=== PATIENT | female | born 1990 | race Caucasian/White ===

== ENCOUNTER 2020-06-18 05:55 | Day surgery (SDC) | payer MEDICAID, SELFPAY ==
--- NOTE | 2020-06-17 12:54 | PCM.HPOB.BLA ---
- Problem List (1) Sterilization Status: Acute History and Physical Date of Admission: 06/18/20 DATE OF SERVICE: June 12, 2020 ? PROBLEM:?desires permanent sterilization ? DIAGNOSIS:?desires permanent sterilization ? SUBJECTIVE:?Pt has 5 children. She is 100% certain that she does not desire more children in the future.?Currently single. Not sexually active. Last sexually active 3-4 years ago. Not on control.? ? PAST SURGICAL HISTORY:? PAST SURGICAL HISTORY PAST SURGICAL HISTORY Procedure Laterality Date ? DELIVERY ONLY ? 2009,09/06/11 ? , low transverse ? DELIVERY ONLY ? 06/23/14 ? , low transverse ? DELIVERY ONLY ? 08/26/15 ? , low transverse ? DELIVERY ONLY ? 10/2016 ? , low transverse ? PAST SURGICAL HISTORY OF ? ? ? BILATERAL FOOT SURGERY ? PAST MEDICAL HISTORY:? PAST MEDICAL HISTORY PAST MEDICAL HISTORY Diagnosis Date ? Anemia ? ? Chlamydia ? ? WITH 1ST ? Excessive or frequent menstruation ? ? Heavy periods ? Irregular menstrual cycle ? ? Irregular periods ? SOCIAL HISTORY:? SOCIAL HISTORY Social History ? Tobacco Use ? Smoking status: Never Smoker ? Smokeless tobacco: Never Used Substance Use Topics ? Alcohol use: No ? Drug use: No ? Allergies: ?Codeine ?Other: See Comments ??Comment:dizziness ? Current Outpatient Medications on File Prior to Visit Medication Sig ? loratadine (CLARITIN) 10 mg tablet ? ? fluticasone (FLONASE) 50 mcg/actuation nasal spray ? ? VITAMIN D2 1,250 mcg (50,000 unit) capsule Take 1 capsule by mouth one time a week. No current facility-administered medications on file prior to visit.? ? ? OBJECTIVE: ? VITALS:? BP 100/60 ? Pulse 70 ? Resp 16 ? Ht 5' (1.524 m) ? Wt 161 lb 3.2 oz (73.1 kg) ? LMP 05/07/2020 (Exact Date) ? BMI 31.48 kg/m? ? HEENT: ?Normocephalic, atraumatic, Mucus membranes moist without lesions. ? NECK: ???Soft and Supple. ?No adenopathy , thyromegaly or bruits. ? SKIN: No lesions. ? CHEST: Clear to auscultation. ?No wheezes or rales. ?Good air exchange. ? HEART: Regular rate and rhythm ?No S3 or S4. ?No gallops or rubs. ? BACK: Nontender with no CVA tenderness. ? ABDOMEN: Soft, non-tender, non-distended, no masses, no hepatosplenomegaly. ? LOWER EXTREMITIES: There was no pitting edema, no palpable cords and no skin changes. ? ASSESSMENT:?Multiparous patient who desires permanent sterilization ? PLAN: 1)?Discussed laparoscopic bilateral salpingectomy. She understands that there could be significant adhesive disease in pelvis given 5 prior sections. Discussed alternative options for control. Reviewed that this surgery is permanent and irreversible, and discussed other options for control. She says she is 100% certain she does not want more children in the future and understands the risk of regret.?The rationale for the proposed surgery was discussed in addition to risks, benefits, and alternatives. ?General pre- and post-operative care was reviewed. ?Questions were answered. ?After discussion, the patient indicated a desire to proceed with the planned surgery. ? Nicci Potts,?DO
[2020-06-18] VITALS (7 sets, daily range): BP systolic 99–115; BP diastolic 46–74; PULSE 64–85; RESP 16–18; TEMP 36.4–37.1; O2SAT 98–100; BMI 31.8
[2020-06-18 06:27] LABS: Hematocrit 36.2 % (37-47); Hemoglobin 11.8 g/dL (12.0-15.0); Mean Corp Hgb Conc 32.6 g/dL (32-36); Mean Corpuscular Volume 92.1 fL (81-99); Mean Platelet Vol. 10.2 fl (6.2-12.0); Platelet Count 267 K/mm3 (150-450); RBC Distribution Width CV 11.7 % (11.6-14.6); RBC Distribution Width SD 39.6 fl (35.1-43.9); Red Blood Count 3.93 M/mm3 (4.2-5.4); White Blood Count 7.3 K/mm3 (4.4-11.0)
[2020-06-18 06:29] LABS: Internal QC Validated? YES +Cl - CLEAR BKGD; Pregnancy, Urine Negative Negative
[2020-06-18] MEDS: Lactated Ringers 1,000 ML 100 ML IV ×2 (06:52→09:14)
--- NOTE | 2020-06-18 07:24 | PCM.DC ---
- Discharge Diagnoses Current Active Problems: Current Active and Chronic Problems Sterilization (Acute) You will use the following diet at home:: No restrictions Your food should be the consistency of: Regular Discharge Activity: May not drive while taking narcotic pain medications., May Shower Return to work on:: 06/25/20 May shower in (days): 0 May resume sexual activity in: 1 week Ice area for (Minutes): 15 Weight Bearing Status: Weight bearing as tolerated Lifting Restrictions: Nothing greater than 5-10 lbs Call your doctor if your incision/area has: Sudden Increased Bleeding, Increased Pain/ Swelling, Increased Redness, Foul Smelling Discharge, Swelling at the incision site Call your doctor if you observe: Fever of 101 or Higher, Inability to urinate, Inability to have a bowel movement, Using more than one pad per hour, Shortness of breath, Dizziness, Fainting spells, Chest pain, Increased palpitations (irregular heartbeat), Calf discomfort, Uncontrolled pain Suture Line Care: Avoid Pulling/Pushing, Avoid Pinching/Bending Cleanse incision/area with: Soap & Water Allergies/Adverse Reactions: Allergies codeine Adverse Reaction (Verified 06/10/20 08:12) Other dizziness & lightheadedness Medications to take at Discharge Ergocalciferol [Vitamin D] 50,000 unit PO Q7D 06/10/20 Ferrous Sulfate 325 mg PO DAILY@0800 06/10/20 Fluticasone 0.05% [Flonase Nasal Petroleum] 1 spray NASAL DAILY 06/10/20 Loratadine [Claritin] 10 mg PO DAILY 06/10/20 Orders to be completed after discharge: Type & Screen Time Frame: 06/18/20, Location: None Selected Primary Care Physician: Karishma Cruz DO [Primary Care Provider] - Test Results: Test results from this visit will be discussed in further detail at your follow-up appointment, if applicable. Please Follow Up With: Nicci Potts DO When: 1-2 weeks
--- NOTE | 2020-06-18 07:26 | PCM.OPRPT ---
Problem List (1) Sterilization Status: Acute Report of Operation Date of Procedure: 06/18/20 Pre-Operative Diagnosis: Multiparous patient, desires permanent sterilization Post-Operative Diagnosis: As above Surgery/Procedure Performed:: Laparoscopic bilateral salpingectomy Description of Surgical Findings:: Normal-appearing uterus, bilateral tubes, bilateral ovaries. Normal-appearing pelvis. Moderate amount of scarring of the bladder to the anterior surface of the uterus. back tender pulp drier: other - Pito Carias MS3 Type of Anesthesia:: General Special Medications: None Specimen's removed: Bilateral fallopian tubes Drains: None Estimated Blood Loss (mL): 20 Fluids Replaced: 1000 Description of Procedure: Indications: Multiparous patient. She requests permanent sterilization. She is 100% certain that she does not desire children in the future. She understands risks, benefits, alternatives to the procedure. All other forms of control were discussed with patient including long-acting reversible contraception. Start time: 075 Stop time: 832 Procedure: The pt was taken to the operating room where general anesthesia was induced. She was prepped and draped in the dorsal lithotomy position using yellowfin stirrups. A small umbilical hernia was noted at the start of the case. From below a weighted speculum was placed in the vagina to expose the cervix. A tenaculum was placed on the anterior lip of the cervix and a Bryan cannula was placed for uterine manipulation. The weighted speculum was then removed. Gloves were changed. We turned to the abdominal portion of the procedure. Half percent Marcaine was injected at all port sites. An 5 mm infraumbilical incision was made to accommodate a 5 mm port. This port was placed using the laparoscope under direct visualization. Once confirmed intraperitoneal CO2 insufflation was initiated. The pelvis was inspected and noted to be normal appearing with moderate bladder adhesions. A left lateral 5 mm port was placed. A right lateral 5 mm port was placed. The right fallopian tube was followed out to the fimbriated end. Using the LigaSure device the mesosalpinx was serially clamped, cauterized, and cut until the cornua of the uterus was reached. The right fallopian tube was then ligated near the cornua, and the entire right fallopian tube was removed. The same was performed on the left and the entire left fallopian tube was removed. The bilateral fallopian tubes were sent to pathology for review. Hemostasis was noted. All ports were removed. The abdomen was exsufflated. The incisions were closed in a subcuticular fashion using Monocryl. Dermabond glue was placed over the incisions. From below the single-tooth tenaculum and a Bryan cannula were removed. Bleeding was noted from the tenaculum sites. A ring forcep was placed over the tenaculum sites to apply pressure. Silver nitrate was then applied over the tenaculum sites. Hemostasis was then noted. All instruments were removed from the vagina and vaginal sweep was performed. Instrument, sponge, needle counts were correct. The patient was taken to the recovery in stable condition. The client services assistant was present for the entire portion of the case from start to finish. The client services assistant helped with draping and positioning the patient. The client services assistant also helped with the laparoscopic procedure, and closure of the port sites. Grafts/Implants Used: None - Complications None - Admit VTE Documentation VTE Present on Admission: No VTE Mechan Device Prophylaxis: SCD's
--- NOTE | 2020-06-18 07:30 | FALS_PTH ---
PATIENT: JOSEP AMARO LOC: [facility] – [place] U#:[id number] AGE/SX: 30/F ROOM: RE06/18/[address]: Dr. Nicci Potts DO : 1990 BED: DIS: 06/18/2020 SPEC #: [id number] RECD: 06/18/20 09:32 STATUS: BAYLEE RETorres #: [id number] STEFANI: 06/18/20 07:[address]: Nicci Potts DEPT: SURGICAL PATHOLOGY RECD BY: Ese Trejo ENTERED: 06/18/20 09:57 SP TYPE: FALL TUBES OTHR DR: Dr. Karishma Cruz, Tissues: Fallopian tube Procedures: Surgery Specimen Level II HEADER OPERATION: Laparoscopic salpingectomy PRE-OP DIAGNOSIS: Multiparous, sterilization TISSUE SUBMITTED: Bilateral fallopian tubes MICROSCOPIC DIAGNOSIS Bilateral fallopian tubes, salpingectomy: Bilateral fallopian tubes including fimbrial ends, no pathologic diagnosis. SJ:alisia 06/19/20 MICROSCOPIC DESCRIPTION Slides are reviewed. GROSS DESCRIPTION Received in fixative is one container labeled with the patient's name and designated bilateral fallopian tubes. The specimen consists of bilateral fallopian tubes including fimbrial ends measuring 7 cm in length and 0.6 cm in diameter and 6 cm in length and up to 0.8 cm in diameter. The fallopian tubes are not identified as right or left. Sections reveal unremarkable cut surfaces. [facility] Nurse sections are submitted in two cassettes with each cassette containing one fallopian tube. / CONNER:alisia 06/18/20 TC:4 CPT: 14867 x2
[2020-06-18] MEDS: Bupivacaine Mpf 0.5% 30 ML VIAL (07:52)
[2020-06-18] MEDS: Silver Nitrate (BKC) 1 EACH (08:30)
== END 2020-06-18 10:47 | disposition home or self-care (01) ==
LOC: PAT 05:55 → AC 05:56
PROVIDERS: Anesthesiology; PCP Family Medicine; Referring Provider Obstetrics & Gynecology; Visit Provider Obstetrics & Gynecology
PROC: (CPT 58661; principal; 2020-06-18 07:15)
DX: Z30.2 Encounter for sterilization (principal); Z11.59 Encounter for screening for other viral diseases; Z86.2 Personal history of diseases of the blood and blood-forming organs and certain disorders involving the immune mechanism
CPT/HCPCS: 00840; 58661; 81025; 85027; 87635; 88302; C9803; J7120; J2405; U0003

== ENCOUNTER → 2021-12-30 | Outpatient (CLI) | payer MEDICAID, SELFPAY ==
[2022-01-07 12:09] LABS: Clam <0.10 kU/L (Class 0); Codfish <0.10 kU/L (Class 0); Corn <0.10 kU/L (Class 0); Egg, White <0.10 kU/L (Class 0); Milk (Cow) <0.10 kU/L (Class 0); Peanut 0.49 kU/L (Class I); SCALLOP <0.10 kU/L (Class 0); Shrimp <0.10 kU/L (Class 0); Soybean <0.10 kU/L (Class 0); Walnut, (Food) <0.10 kU/L (Class 0); Wheat <0.10 kU/L (Class 0)
[2022-01-07 13:22] LABS: SESAME SEED <0.10 kU/L (Class 0)
== END | disposition home or self-care (01) ==
LOC: LAB 08:48
PROVIDERS: PCP Family Medicine; Visit Provider Otolaryngology
DX: T78.40XA Allergy, unspecified, initial encounter (principal)
CPT/HCPCS: 36415; 86003